=== PATIENT | female | born 1995 ===

== ENCOUNTER 2016-11-15 12:32 | Emergency (ER) | payer BC, OTHER ==
--- NOTE | 2016-11-15 12:39 | UC ---
Complaint Female HPI - HPI Summary HPI Summary: seen at [facility] 5 days ago and rx 3 days of Bactrim for UTI, symptoms got better then worse again---has urgency, frequency, burning with urination--- no fevers, chills, nausea, vomiting or back pain - History Of Current Complaint Chief Complaint: UCGU Stated Complaint: URINARY Time Seen by Provider: 11/15/16 12:37 Hx Obtained From: Patient ?: No Onset/Duration: Sudden Onset, Lasting Days - 7, Worse Since - past 2 days sx hav returned Timing: Intermittent Severity Initially: Mild Severity Currently: Mild Pain Intensity: 3 Pain Scale Used: 0-10 Numeric Character: Burning Aggravating Factor(s): Urination Associated Signs And Symptoms: Positive: Negative - Allergies/Home Medications Allergies/Adverse Reactions: Allergies Allergy/AdvReac Type Severity Reaction Status Date / Time No Known Allergies Allergy Verified 11/15/16 12:53 Home Medications: Home Medications Norethin Acet & Estrad-Fe [Minastrin 24 Fe 1-20 mg-Mcg(24)] 1 chw PO DAILY 11/15 [History Confirmed 11/15/16] PMH/Surg Hx/FS Hx/Imm Hx Previously Healthy: Yes - Family History Known Family History: Positive: None - Social History Occupation: Student Lives: With Family Alcohol Use: None Substance Use Type: None Review of Systems Constitutional: Negative Skin: Negative Eyes: Negative ENT: Negative Respiratory: Negative Cardiovascular: Negative Gastrointestinal: Negative Genitourinary: Dysuria, Frequency, Urgency Motor: Negative Neurovascular: Negative Musculoskeletal: Negative Neurological: Negative Psychological: Negative All Other Systems Reviewed And Are Negative: Yes Physical Exam Triage Information Reviewed: Yes Appearance: Well-Appearing, No Pain Distress, Well-Nourished Vital Signs Reviewed: Yes Eye Exam: Normal Eyes: Positive: Conjunctiva Clear ENT Exam: Normal ENT: Positive: Normal ENT inspection, Hearing grossly normal, TMs normal. Negative: Nasal congestion, Nasal drainage, Trismus, Muffled/hoarse voice Dental Exam: Normal Neck exam: Normal Neck: Positive: Supple, Nontender Respiratory Exam: Normal Respiratory: Positive: Chest non-tender, No respiratory distress, No accessory muscle use Cardiovascular Exam: Normal Cardiovascular: Positive: RRR, Pulses Normal, Brisk Capillary Refill Abdominal Exam: Normal Abdomen Description: Positive: Nontender, No Organomegaly, Other: - suprapubic discomfort. Negative: CVA Tenderness (R), CVA Tenderness (L) Bowel Sounds: Positive: Present Musculoskeletal Exam: Normal Musculoskeletal: Positive: Strength Intact, ROM Intact Neurological Exam: Normal Neurological: Positive: Alert, Muscle Tone Normal Psychological Exam: Normal Skin Exam: Normal Diagnostics - Laboratory Diagnostic Studies Completed/Ordered: ua trace leuks and trace blood Complaint Female Dx - Course Course Of Treatment: Bactrim increase fluids, follow at [facility], [facility] or return as needed - Differential Dx/Diagnosis Differential Diagnosis/HQI/PQRI: Renal Colic, Sexually Transmitted Disease, Ureteral Stone, Urinary Tract Infection Provider Diagnoses: Uti Discharge - Discharge Plan Condition: Stable Disposition: HOME Prescriptions: Phenazopyridine TAB* [Pyridium 100 mg TAB*] 100 mg PO TID PRN #6 tab PRN Reason: urinary pain Sulfamethox/Trimethoprim DS* [Bactrim DS 800/160 TAB*] 1 tab PO BID #14 tab Patient Education Materials: Phenazopyridine (By mouth), Urinary Tract Infection in Women (ED) Referrals: [facility] [Outside] - If Needed Additional Instructions: Return or follow at [facility] for change or increase in symptoms
[2016-11-15 12:57] VITALS: BP 120/61
== END 2016-11-15 13:22 | disposition home or self-care (01) ==
LOC: UCCORT 12:32
DX: N39.0 Urinary tract infection, site not specified (principal); Z32.02 Encounter for pregnancy test, result negative
CPT/HCPCS: 81003; 84702; 87086; 99202; G0463

== ENCOUNTER 2016-11-26 11:35 | Emergency (ER) | payer BC, OTHER ==
--- NOTE | 2016-11-26 12:13 | UC ---
Throat Pain/Nasal Josemanuel HPI - HPI Summary HPI Summary: nasal congestion, fatigue x 1 day no fever, no chills, no sore throat, + body aches - History of Current Complaint Stated Complaint: FLU SYMPTOMS Time Seen by Provider: 11/26/16 11:50 Hx Obtained From: Patient Hx Last Menstrual Period: "two weeks ago" Onset/Duration: Gradual Onset, Lasting Days - 1, Still Present Severity: Moderate Cough: None Associated Signs & Symptoms: Positive: Fever. Negative: Dysphagia, FB Sensation , Drooling, Wheezing, Hoarseness, Sinus Discomfort, Nasal Discharge, Vomiting, Rash - Allergies/Home Medications Allergies/Adverse Reactions: Allergies Allergy/AdvReac Type Severity Reaction Status Date / Time No Known Allergies Allergy Verified 11/15/16 12:53 PMH/Surg Hx/FS Hx/Imm Hx Previously Healthy: Yes - Surgical History Surgical History: None - Family History Known Family History: Positive: None Negative: Diabetes - Social History Alcohol Use: None Substance Use Type: None Smoking Status (MU): Never Smoked Tobacco - Immunization History Most Recent Influenza Vaccination: Not the Season Review of Systems Constitutional: Fever, Chills, Fatigue Skin: Negative Eyes: Negative ENT: Negative Respiratory: Negative Cardiovascular: Negative Gastrointestinal: Negative All Other Systems Reviewed And Are Negative: Yes Physical Exam Triage Information Reviewed: Yes Appearance: Well-Appearing, No Pain Distress, Well-Nourished Vital Signs Reviewed: Yes Eye Exam: Normal Eyes: Positive: Conjunctiva Clear ENT: Positive: Normal ENT inspection, Hearing grossly normal, Pharynx normal Neck exam: Normal Neck: Positive: Supple, Nontender, No Lymphadenopathy Respiratory: Positive: Chest non-tender, Lungs clear, Normal breath sounds, No respiratory distress Cardiovascular: Positive: RRR, No Murmur, Pulses Normal Abdomen Description: Positive: Nontender, No Organomegaly, Soft. Negative: CVA Tenderness (R), CVA Tenderness (L) Throat Pain/Nasal Course/Dx - Differential Dx/Diagnosis Provider Diagnoses: viral illness Discharge - Discharge Plan Condition: Stable Disposition: HOME Patient Education Materials: Viral Syndrome (ED) Referrals: Non Staff,Doctor [Primary Care Provider] - If Needed
== END 2016-11-26 12:35 | disposition left against medical advice (07) ==
LOC: UCCORT 11:35
DX: B34.9 Viral infection, unspecified (principal)
CPT/HCPCS: 99211; G0463